=== PATIENT | male | born 1960 | race Caucasian/White ===

== ENCOUNTER → 2017-07-10 | Outpatient (CLI) | payer OTHER ==
[~2017-07-10] MED LIST: ALBUTEROL SULF8.5 GM IH; INDOCIN25 MG PO; PREDNISONE20 MG PO; VALIUM5 MG PO
== END | disposition home or self-care (01) ==
LOC: NUC 06:59
DX: R10.32 Left lower quadrant pain (principal); R10.84 Generalized abdominal pain
CPT/HCPCS: 78227; A9537